=== PATIENT | male | born 1960 | race Caucasian/White ===

== ENCOUNTER 2017-03-19 11:57 | Day surgery (SDC) | payer OTHER ==
[~2017-03-19] VITALS: Ht 177.8 cm; Wt 94.5 kg
[~2017-03-19 11:57] MED LIST: AMLO-145 PO; ATOR40TA68 PO; FERR240T9 PO; HYDR-3498 PO; LOSA100T7 PO; METF500T4 PO; METO-429 PO
[2017-03-19 12:27] VITALS: Ht 177.8 cm; Wt 94.5 kg
[2017-03-19 13:31] VITALS: BP 151/93; PULSE 99; RESP 16
[2017-03-19] MEDS ORDERED: PROPOFOL 40 ML ONE (13:31)
[2017-03-19] MEDS ORDERED: LIDOCAINE 2% (SDV) 5 ML INJ ONE (13:31)
[2017-03-19 14:45] VITALS: BP 140/95; PULSE 86; RESP 14
--- NOTE | 2017-04-12 14:40 | GILP ---
DATE OF PROCEDURE: PROCEDURE: Colonoscopy. BRIEF HISTORY AND INDICATIONS: The patient with history of colon cancer, post-segmental resection a nd chemotherapy, here for surveillance. PREMEDICATION: Monitored anesthesia care by anesthesiologist. SURGEON: Mary Jane Liao MD INSTRUMENT USED: Olympus colonoscope. PREPARATION: Extremely poor, especially in the right side of the colon making this examination inad equate. TECHNIQUE: After informed consent, with the patient/relatives understanding the procedure, its indic ations potential risks and complications, including but not limited to: allergic reaction, bleeding, perforation, infection, missed lesions and after all pertinent questions were answered to the patie nt's satisfaction, the patient/relatives signed the witnessed informed consent. Following this, premedication was administered slowly IV push by under careful cardiovascular and re spiratory monitoring with pulse oximetry, automatic blood pressure and school bus monitor. Once the sedativ e effect was achieved, the patient was placed in the left lateral decubitus position, digital rectal examination was performed. The colonoscope was then introduced and advanced under visual control th roughout all segments of the colon including: the rectum, sigmoid, descending colon, splenic flexure , transverse colon, hepatic flexure, ascending colon and finally reaching the cecum which was clearl y identified by transillumination, finger indentation and the ileocecal valve. Careful examination o f the mucosa of the lower gastrointestinal tract both on insertion as well as withdrawal of the inst rument disclosed the following findings: The examined colonic mucosa appears unremarkable with no gross lesions, but clearly this examination is not adequate for the purposes of surveillance in a high risk individual. The instrument was wit hdrawn reexamining the mucosa in detail. Moderate-sized internal hemorrhoids are present. The instrument was then withdrawn, the patient tolerated the procedure well and was transferred out of the endoscopy suite awake and in good condition to continue recovery under observation. IMPRESSION 1. Poor preparation precluded adequate examination. 2. No gross lesions identified. 3. Moderate to large internal hemorrhoids. PLAN: The patient will be rescheduled within 6 months and further recommendations will depend on ben rojas's clinical course. Dictated By: MARY JANE LIAO MS/LUZ Conf#: [id number] DID#: [id number] CC: MARY JANE LIAO;*EndCC*
== END 2017-03-19 14:35 | disposition home or self-care (01) ==
LOC: GIL 11:57
PROVIDERS: ATTEND Internal Medicine Gastroenterology
DX: Z85.038 Personal history of other malignant neoplasm of large intestine (principal); K64.8 Other hemorrhoids; I10 Essential (primary) hypertension; E11.9 Type 2 diabetes mellitus without complications; F41.9 Anxiety disorder, unspecified
CPT/HCPCS: 45378; Z7610

== ENCOUNTER 2018-05-01 07:51 | Day surgery (SDC) | END 2018-05-01 13:40 | disposition home or self-care (01) ==